=== PATIENT | female | born 1955 | race Caucasian/White ===

== ENCOUNTER 2019-09-30 10:41 | Day surgery (SDC) | payer MEDICARE, OTHER ==
[~2019-09-30] VITALS: Ht 160 cm; Wt 148.0 kg
[~2019-09-30 10:41] MED LIST: SODIUM CHLORIDE 0.9% 1,000 ML ONE
[2019-09-30] MEDS ORDERED: PROPOFOL 1% 20 ML VIAL IVP ONE (10:42)
[2019-09-30] MEDS ORDERED: LIDOCAINE/PF 2% 5 ML VIAL IM ONE (10:42)
[2019-09-30] MEDS ORDERED: METF-960 PO (11:19)
[2019-09-30] MEDS ORDERED: PRAV40TA4 PO (11:19)
[2019-09-30] MEDS ORDERED: FURO80 PO (11:19)
[2019-09-30] MEDS ORDERED: APIX5TAB PO (11:19)
[2019-09-30] MEDS ORDERED: CARV25 PO (11:19)
[2019-09-30] MEDS ORDERED: SPIR25 PO (11:19)
[2019-09-30] MEDS ORDERED: SODIUM CHLORIDE 0.9% 1,000 ML IV ONE (13:00)
== END 2019-09-30 15:45 | disposition home or self-care (01) ==
LOC: SURGERY 10:41
PROVIDERS: ATTEND Student in an Organized Health Care Education/Training Program
DX: R19.5 Other fecal abnormalities (principal); D12.3 Benign neoplasm of transverse colon; K64.8 Other hemorrhoids; I13.0 Hypertensive heart and chronic kidney disease with heart failure and stage 1 through stage 4 chronic kidney disease, or unspecified chronic kidney disease; I50.9 Heart failure, unspecified; N18.9 Chronic kidney disease, unspecified; I48.91 Unspecified atrial fibrillation; Z98.0 Intestinal bypass and anastomosis status; Z80.0 Family history of malignant neoplasm of digestive organs; Z98.890 Other specified postprocedural states; Z79.899 Other long term (current) drug therapy
CPT/HCPCS: 45380; 88305; 93005; C1769; J2704; J3490; J7030